=== PATIENT | male | born 2000 | race African-American/Black ===

== ENCOUNTER → 2020-01-15 | Outpatient (CLI) | payer BC, OTHER | LOC: COL.RAD 12:34 | DX: M79.89 Other specified soft tissue disorders (principal); Z96.652 Presence of left artificial knee joint ==

== ENCOUNTER 2020-07-16 14:53 | Emergency (ER) | payer BC, OTHER ==
[~2020-07-16] VITALS: Ht 182.9 cm; Wt 92.3 kg
[2020-07-16 14:54] VITALS: TEMP 99.5
[2020-07-16 15:46] LABS: BASO # 0.1 (0.0-0.2); BASO % 0.6 % (0.0-2.0); EOS % 0.1 % (0-4.0); GRAN # 5.8 (1.4-6.5); GRAN % 72.6 % (42.2-75.2); HEMATOCRIT 40.3 % (36.0-47.0); HEMOGLOBIN 13.7 g/dl (12.5-16.1); LYMPH # 1.6 (1.2-3.4); LYMPH % 19.8 % (20.0-51.0); MEAN CELL VOLUME 84 fl (80.0-95.0); MEAN CORPUSCULAR HEMOGLOBIN 29 pg (26.0-32.0); MEAN CORPUSCULAR HGB CONC 34 g/dl (33.0-37.0); MONO # 0.5 (0.1-0.6); MONO % 6.6 % (1.7-9.3); PLATELET COUNT 237 K/mm3 (130-400); REDCELL DISTRIBUTION WIDTH-CV 11.8 % (11.5-14.5)
[2020-07-16 16:00] LABS: ALBUMIN 4.1 gm/dL (3.5-5.0); BILIRUBIN,TOTAL 0.7 mg/dL (0.0-1.0); CALCIUM 9.2 mg/dL (8.4-10.2); CREATININE, serum 1.31 (0.66-1.25); TOTAL PROTEIN 6.9 gm/dL (6.4-8.2)
[2020-07-16] MEDS ORDERED: NORCO 325 MG-51 TAB PO (16:24)
[2020-07-16] MEDS ORDERED: FLEXERIL 1010 MG/TAB PO (16:24)
[2020-07-16 16:31] LABS: COLLECTION METHOD CLEAN CATCH
[2020-07-16 16:38] LABS: MUCOUS Present /lpf; PH 5 (5-8); SQUAMOUS EPITHELIAL None Seen /hpf; URINE APPEARANCE Clear; URINE BACTERIA None Seen /hpf; URINE BILIRUBIN Negative (NEGATIVE); URINE BLOOD Negative (NEGATIVE); URINE COLOR Yellow; URINE GLUCOSE Negative (NEGATIVE); URINE KETONE Negative (NEGATIVE); URINE LEUKOCYTE ESTERASE Negative (NEGATIVE); URINE NITRATE Negative (NEGATIVE); URINE PROTEIN(semi-quant) Negative (NEGATIVE); URINE RBC 0-2 /hpf; URINE UROBILINOGEN Negative (NEGATIVE)
[2020-07-16 17:08] VITALS: BP 129/73; PULSE 75
== END 2020-07-16 17:08 | disposition home or self-care (01) ==
LOC: COL.ER 14:53
PROVIDERS: Emergency Medicine
DX: S06.0X0A Concussion without loss of consciousness, initial encounter (principal); S33.9XXA Sprain of unspecified parts of lumbar spine and pelvis, initial encounter; R40.2410 Glasgow coma scale score 13-15, unspecified time; W51.XXXA Accidental striking against or bumped into by another person, initial encounter; Y93.61 Activity, american tackle football; Y92.321 Football field as the place of occurrence of the external cause
CPT/HCPCS: J1885; J2060; J3010; J7030; Q9967